=== PATIENT | male | born 1985 | race Caucasian/White ===

== ENCOUNTER 2017-11-06 12:56 | Emergency (ER) | payer OTHER ==
[~2017-11-06] VITALS: Ht 193 cm; Wt 118.0 kg
[2017-11-06 13:19] VITALS: BP 157/94
[2017-11-06] MEDS ORDERED: MULT-6 PO (13:22)
== END 2017-11-06 14:50 | disposition home or self-care (01) ==
LOC: EDBD 12:56 → ED 13:37
DX: S63.287A Dislocation of proximal interphalangeal joint of left little finger, initial encounter (principal); W01.198A Fall on same level from slipping, tripping and stumbling with subsequent striking against other object, initial encounter; Y93.89 Activity, other specified; Y99.0 Civilian activity done for income or pay; Y92.69 Other specified industrial and construction area as the place of occurrence of the external cause
CPT/HCPCS: 26770; 99284